=== PATIENT | male | born 1955 | race Caucasian/White ===

== ENCOUNTER 2025-02-05 14:35 | Emergency (ER) | payer MEDICARE, BC, SELFPAY ==
[2025-02-05 14:36] VITALS: BMI 25.1
[2025-02-05 14:55] VITALS: BP 116/80; PULSE 95; RESP 18; TEMP 36.6; O2SAT 99
--- NOTE | 2025-02-05 15:01 | XR_ITS ---
Examination: PA lateral chest 2 views Technique: Upright PA lateral chest 2 views Date and time: February 05, 2025 1512 hrs. Indications: Chest pain today. Findings: Normal heart size. The lungs are clear. Orthopedic screw right scapula Mild osteopenia. Impression: No active disease
--- NOTE | 2025-02-05 15:01 | EKG_ITS ---
[facility] Test Date: 2025-02-05 Pat Name: MEDINA CARBALLO Department: Room: - Gender: Male Training Representative: : 1955 Requested By: All Mcpherson Order Number: [id number] Reading MD: All Mcpherson Measurements Intervals [place] Rate: 83 P: 38 ME: 164 QRS: -12 QRSD: 88 T: 14 QT: 382 QTc: 451 Interpretive Statements SINUS RHYTHM POSSIBLE LEFT ATRIAL ENLARGEMENT [-0.1mV P-WAVE IN V1/V2] No previous ECG available for comparison /[id number]/[email or web address]/[id number].pdf
--- NOTE | 2025-02-05 15:03 | PD.EDWEAK ---
ED Weakness RME/HPI General Chief complaint: General Adult/Misc Complain Stated complaint: I THINK I HAVE HEAT STROKE Time Seen by Provider: 02/05/25 14:45 Source: patient Arrival date/time: 02/05/25 14:35 69-year-old male with no known medical history presents to the emergency room with a chief complaint of generalized weakness and fatigue x 1 day. Patient states he recently started camping in this area and states he thinks he is having a heatstroke. Mode of arrival: ambulatory Limitations: no limitations Related Data Allergies Allergy/AdvReac Type Severity Reaction Status Date / Time No Known Allergies Allergy Verified 02/05/25 14:37 ED Exam General Limitations: Present no limitations Course Orders Category Date Time Status EKG (ED ONLY) *Do not use* NOW Care 02/05/25 15:01 Active EKG (ED Only) Stat Exams 02/05/25 15:01 Ordered XR chest 2V Stat Exams 02/05/25 15:01 Ordered B-Type Natriuretic Peptide Stat Lab 02/05/25 15:01 Ordered CBC Stat Lab 02/05/25 15:01 Ordered CK [Creatine Kinase] Stat Lab 02/05/25 15:01 Ordered Comprehensive Metabolic Panel Stat Lab 02/05/25 15:01 Ordered Magnesium Stat Lab 02/05/25 15:01 Ordered Troponin I Stat Lab 02/05/25 15:01 Ordered Urinalysis, C/S if Indicated Stat Lab 02/05/25 15:01 Ordered Vital Signs Vital signs: Vital Signs Temperature 97.8 F 02/05/25 14:55 Pulse Rate 95 02/05/25 14:55 Respiratory Rate 18 02/05/25 14:55 Blood Pressure 116/80 02/05/25 14:55 Pulse Oximetry (%) 99 02/05/25 14:55 Oxygen Delivery Method Room Air 02/05/25 14:55 Discharge Plan Patient/Caregiver Discharge Instructions Print Language: Congolese
--- NOTE | 2025-02-05 15:38 | PD.EDRME ---
Rapid Medical Screening Exam [facility] Arrival date/time: 02/05/25 14:35 69-year-old male with no known medical history presents to the emergency room with a chief complaint of generalized weakness and fatigue x 1 day. Patient states he recently started camping in this area and states he thinks he is having a heatstroke. I have greeted and performed a focused initial assessment of this patient. A comprehensive ED assessment and evaluation of the patient, analysis of all test results, and completion of the medical decision making process will be conducted by additional ED providers. Chief Complaint: General Adult/Misc Complain Time Seen by Provider: 02/05/25 14:45 Vital signs: Vital Signs Temperature 97.8 F 02/05/25 14:55 Pulse Rate 95 02/05/25 14:55 Respiratory Rate 18 02/05/25 14:55 Blood Pressure 116/80 02/05/25 14:55 Pulse Oximetry (%) 99 02/05/25 14:55 Oxygen Delivery Method Room Air 02/05/25 14:55 Vital signs reviewed by provider: Yes
[2025-02-05 16:03] LABS: Basophils # (Auto) 0.1 Thou/mm3 (0.0-0.2); Basophils % (Auto) 0 % (0-2.5); Eosinophils # (Auto) 0.0 Thou/mm3 (0.0-0.5); Eosinophils % (Auto) 0 % (0-10); Hematocrit 47.0 % (41.0-53.0); Hemoglobin 16.0 g/dL (13.5-16.0); Immature Granulocytes Auto 0.07 Thou/mm3 (0.00-0.00); Lymphocytes # (Auto) 0.5 Thou/mm3 (1.0-4.8); Lymphocytes % (Auto) 3 % (10-50); Mean Corpuscular HGB Conc 34.0 g/dl (31.0-37.0); Mean Corpuscular Hemoglobin 29.7 pg (25.0-35.0); Mean Corpuscular Volume 87 fL (80-100); Monocytes # (Auto) 0.7 Thou/mm3 (0.0-0.8); Monocytes % (Auto) 4 % (0-12); Neutrophils # (Auto) 16.0 Thou/mm3 (1.8-7.7); Neutrophils % (Auto) 92 % (37-80); Nucleated Red Blood Cell # 0.00 Thou/mm3 (0.00-0.00); Nucleated Red Blood Cell % 0 /100 WBC (0); Platelet Count 325 Thou/mm3 (140-440); RDW Standard Deviation 40.6 fL (35.1-43.9); Red Blood Count 5.39 Miln/mm3 (4.50-5.90); White Blood Count 17.3 Thou/mm3 (3.8-10.6)
[2025-02-05 16:20] LABS: B-Type Natriuretic Peptide < 20 pg/mL (0-100)
[2025-02-05 16:21] LABS: Alanine Aminotransferase 15 U/L (10-49); Albumin, Serum 5.1 gm/dL (3.4-4.8); Albumin/Globulin Ratio 2.7 (1.2-2.2); Alkaline Phosphatase 61 U/L (46-116); Anion Gap 12 (7-16); Aspartate Amino Transferase 10 U/L (0-34); BUN/Creatinine Ratio 19 Ratio (12-20); Bilirubin,Total 1.1 mg/dL (0.3-1.2); Blood Urea Nitrogen 25 mg/dL (9-23); Calcium 10.3 mg/dL (8.3-10.6); Calcium (Corrected) 10.3 mg/dL (8.5-10.1); Carbon Dioxide 26.4 mMol/L (20.0-31.0); Chloride 107 mMol/L (98-107); Creatine Kinase 96 U/L (34-171); Creatinine (Component) 1.3 mg/dL (0.6-1.3); Estimated Creatinine Clearance 55.4 mL/min (>60); Globulin 1.9 gm/dL (2.3-3.5); Glucose 134 mg/dL (74-106); Magnesium 2.2 mg/dL (1.6-2.6); Osmolality,Calculated 295 (275-295); Potassium 4.7 mMol/L (3.4-5.1); Sodium 145 mMol/L (136-145); Total Protein 7.0 gm/dL (5.7-8.2); Troponin I < 0.002 ng/mL (0.0-0.045); eGFR 59 See Note
[2025-02-05 17:45] VITALS: BP 137/87; PULSE 93; RESP 20; TEMP 36.8; O2SAT 97
[2025-02-05 17:45] LABS: Collection Type, Urine Clean Catch; Squamous Epithelial Cell,Urine 0 /hpf (0-5)
[2025-02-05 17:57] LABS: Bilirubin,Urine Negative (Negative); Blood,Urine Negative (Negative); Clarity,Urine Clear (Clear/Hazy); Color,Urine Yellow (Lt Yel-Yel); Culture Indicated,Urine Not Indicated; Glucose, Urine Negative (Negative); Ketones,Urine 1+ (Negative); Leukocyte Esterase,Urine Negative (Negative); Nitrite,Urine Negative (Negative); PH,Urine 6.0 (5.0-7.0); Protein,Urine 1+ (Neg - Trace); RBC,Urine 5 /hpf (0-3); Specific Gravity,Urine 1.032 (1.001-1.035); Urobilinogen,Urine Negative mg/dL (0.0-1.0); WBC,Urine 3 /hpf (0-5)
--- NOTE | 2025-02-05 18:13 | PC.NURSE ---
PT [facility], AMBULATES W/STEADY GAIT INDEPENDENTLY. PER PT HE IS [place] ON [place], TODAY BEGAN FEELING LIGHT HEADED AND HAD SOME NAUSEA AND THOUGHT IT WAS DUE TO THE HEAT. STATES HE HAS BEEN DRINKING PLENTY OF WATER. DENIES ANY PAIN, STATES HE IS FEELING BETTER SINCE ARRIVING TO THE ED.
--- NOTE | 2025-02-05 18:26 | EDNOTE_ITS ---
<Statement entered by Renate Navas MD - 02/21/25 06:12> As co-signing physician, I was present and available for consult prn. I concur with the plan and care as documented by the midlevel provider. ED General RME/HPI General Chief complaint: General Adult/Misc Complain Stated complaint: I THINK I HAVE HEAT STROKE Time Seen by Provider: 02/05/25 14:45 Arrival date/time: 02/05/25 14:35 This is a 69-year-old male that comes in with complaints of possible heat exhaustion. [place] nearby and has felt very hot and fatigued. Patient states that he has been camping and does not feel like he has been drinking enough fluids patient denies chest pain shortness of breath. Patient just reports weakness. Patient reports diarrhea nausea but no vomiting. RME / HPI RME / HPI narrative: 02/05/25 14:35 69-year-old male with no known medical history presents to the emergency room with a chief complaint of generalized weakness and fatigue x 1 day. Patient states he recently started camping in this area and states he thinks he is having a heatstroke. I have greeted and performed a focused initial assessment of this patient. A comprehensive ED assessment and evaluation of the patient, analysis of all test results, and completion of the medical decision making process will be conducted by additional ED providers. Related Data Allergies Allergy/AdvReac Type Severity Reaction Status Date / Time No Known Allergies Allergy Verified 02/05/25 14:37 Review of Systems Review of Systems Systems Reviewed: All systems reviewed, normal except as documented Past Medical History Past Medical History Comments PMH COMMENT: Denies ED Exam Narrative Physical exam: VITAL SIGNS: Reviewed. GENERAL APPEARANCE: Alert and interactive, follows commands, no acute distress, HEAD AND FACE: Non-traumatic. ENT: PERRL, conjuctiva pink and clear, eyelid no trauma, Mucous membrane moist. NECK: Supple, nontender, no nuchal rigidity. CHEST: No tenderness, no crepitus, no paradoxical movement, no retractions. LUNGS: Clear, well ventilated, symmetric, no rales, no wheezing, no rhonchi, no stridor, good breath sounds bilaterally. HEART: Regular rate, regular rhythm, no murmur, no gallops. ABDOMEN: Soft, nondistended, no guarding, nontender NEUROLOGICAL: Gross motor function intact sensory function intact, Appropriate for age. MUSCULOSKELETAL: low back nontender, full range of motion. EXTREMITIES: No redness no swelling no skin breakdown on bilateral foot and leg. Distal neurovascular status intact bilateral foot SKIN: Color pink, dry, no rash, no lacerations, no abrasions, no contusions. Course Quality Measures none Orders Category Date Time Status Bedside COVID-19 Antigen Test NOW Care 02/05/25 19:31 Completed Bedside Influenza A&B Antigen Test NOW Care 02/05/25 19:31 Completed EKG (ED ONLY) *Do not use* NOW Care 02/05/25 15:01 Completed IV [Insert IV] STAT Care 02/05/25 18:[address] head/brain wo con Stat Exams 02/05/25 18:26 Completed EKG (ED Only) Stat Exams 02/05/25 15:01 Draft XR chest 2V Stat Exams 02/05/25 15:01 Completed B-Type Natriuretic Peptide Stat Lab 02/05/25 15:44 Completed CBC Stat Lab 02/05/25 15:44 Completed CBC Stat Lab 02/05/25 19:36 Completed CK [Creatine Kinase] Stat Lab 02/05/25 15:44 Completed Comprehensive Metabolic Panel Stat Lab 02/05/25 15:44 Completed Comprehensive Metabolic Panel Stat Lab 02/05/25 19:36 Completed Magnesium Stat Lab 02/05/25 15:44 Completed Troponin I Stat Lab 02/05/25 15:44 Completed Troponin I Stat Lab 02/05/25 19:36 Completed Urinalysis, C/S if Indicated Stat Lab 02/05/25 16:37 Completed Sodium Chloride 0.9% 1000 ml [Ns] 1,000 ml Med 02/05/25 18:26 Discontinued IV 999 mls/hr Sodium Chloride 0.9% 1000 ml [Ns] 1,000 ml Med 02/05/25 19:30 Discontinued IV 999 mls/hr Vital Signs Vital signs: Vital Signs Temperature 97.8 F 02/05/25 14:55 Pulse Rate 95 02/05/25 14:55 Respiratory Rate 18 02/05/25 14:55 Blood Pressure 116/80 02/05/25 14:55 Pulse Oximetry (%) 99 02/05/25 14:55 Oxygen Delivery Method Room Air 02/05/25 14:55 PROCEDURES: EKG Interpretation #1: Date of EK02/05/25 Time of EK:05 Rate: 83 Interpretation: Interpreted by me (Sinus rhythm possible left atrial enlargement. Patient has some Q waves in lead I aVL) EKG Impression: No ectopy, Normal QRS and Normal intervals Discharge Plan Plan Patient Disposition: HOME (Self Care) Patient condition on transfer: Stable Prescriptions/Referrals Referrals: No Primary/Family,Physician [Primary Care Provider] - In 1 week Problem List Clinical Impression: Diarrhea, Dehydration Patient/Caregiver Discharge Instructions Discharge Activity: activity as tolerated Education Materials: Dehydration Additional Instructions: Follow up with primary provider in 1-2 days. Come back to ED if symptoms change or worsen. I encourage patient to make sure he stays hydrated. Print Language: Lao Stand Alone Forms: [facility] Info., Patient Portal Info Letter PA/MILAN Supervising Physician PA/MILAN Supervising Physician: jennifer AGUILERA Narrative MDM hospital course: Pt given 2 liters iv fluids and felt better. Repeat labs also look better. Labs reviewed initial white blood cell count was 17.3 and repeat white blood cell count was 11.1. Patient's metabolic panel also looks improved BUN now 20 and creatinine 1.1. Liver function looks unremarkable patient denies abdominal pain. Patient denies nausea. UA unremarkable. Other than showing ketones. Patient ambulated in the hallway in the emergency room. Patient tolerated well. Patient feels comfortable going home at this time. I did do a repeat troponin which was also negative as well. Patient calling family member to come pick him up. ct head: Findings: No significant ventricular enlargement. Intra-axial or extra-axial hemorrhage density is not seen. No mass effect or midline shift Basal cisterns are not remarkable. Fourth ventricle is midline. Cranial vault intact. Impression: Negative for acute hemorrhage, mass effect or midline shift chest ray: Findings: Normal heart size. The lungs are clear. Orthopedic screw right scapula Mild osteopenia. Impression: No active disease Clinical Information Provided by patient Medical Records Reviewed None Meds/Rx Considered, not Ordered None Labs/Rad/Tests considered, not Ordered None Chronic Illness/Social Conditions which may negatively complicate care or outcome(s)-explain: None or not applicable Lab Interpretation Labs: interpreted by me and see narrative above Imaging Imaging interpretation: interpreted by me and see narrative above Medication Administration(s) Medication Administration History Discontinued Medications Sodium Chloride (Ns) 1,000 mls @ 999 mls/hr IV .Q1H1M ONE Stop: 02/05/25 19:26 Last Infusion: 02/05/25 20:00 Dose: Infused Documented By: Admin: 02/05/25 18:54 Dose: 999 mls/hr Documented By: SIMONE Sodium Chloride (Ns) 1,000 mls @ 999 mls/hr IV .Q1H1M ONE Stop: 02/05/25 20:30 Last Infusion: 02/05/25 20:58 Dose: Infused Documented By: Admin: 02/05/25 19:44 Dose: 999 mls/hr Documented By: DT see mar Diagnosis Differential diagnosis: dehydration, heat exhuastaion, heat stroke Dispositon Disposition: Discharge Home
--- NOTE | 2025-02-05 18:26 | XR_ITS ---
Examination: CT brain head without contrast. 2-D sagittal coronal reconstructions Date and time of exam:February 05, 2025, 1843 hrs. Indications: Onset severe dizziness today. CTDI: vol (mGy):51.0. DLP: (mGycm):1050. Technique: Multiple CT axial sections of the brain have been obtained, 5 mm slice thickness. Contrast has not been administered. 2-D sagittal, coronal reconstructions have been obtained Low dose protocols were performed. One or more of the following dose reduction techniques were used; automated exposure control, adjustment of the mA and/or KV according to patient size, use of iterative reconstruction technique. Findings: No significant ventricular enlargement. Intra-axial or extra-axial hemorrhage density is not seen. No mass effect or midline shift Basal cisterns are not remarkable. Fourth ventricle is midline. Cranial vault intact. Impression: Negative for acute hemorrhage, mass effect or midline shift Advise clinical correlation follow-up accordingly.
[2025-02-05] MEDS: SODIUM CHLORIDE 0.9% 1000 ML 1,000 ML 999 ML IV ×2 (18:54→19:44)
[2025-02-05 19:47] LABS: Basophils # (Auto) 0.0 Thou/mm3 (0.0-0.2); Basophils % (Auto) 0 % (0-2.5); Eosinophils # (Auto) 0.0 Thou/mm3 (0.0-0.5); Eosinophils % (Auto) 0 % (0-10); Hematocrit 42.5 % (41.0-53.0); Hemoglobin 14.3 g/dL (13.5-16.0); Immature Granulocytes Auto 0.04 Thou/mm3 (0.00-0.00); Lymphocytes # (Auto) 0.3 Thou/mm3 (1.0-4.8); Lymphocytes % (Auto) 3 % (10-50); Mean Corpuscular HGB Conc 33.6 g/dl (31.0-37.0); Mean Corpuscular Hemoglobin 29.4 pg (25.0-35.0); Mean Corpuscular Volume 87 fL (80-100); Monocytes # (Auto) 0.3 Thou/mm3 (0.0-0.8); Monocytes % (Auto) 3 % (0-12); Neutrophils # (Auto) 10.4 Thou/mm3 (1.8-7.7); Neutrophils % (Auto) 94 % (37-80); Nucleated Red Blood Cell # 0.00 Thou/mm3 (0.00-0.00); Nucleated Red Blood Cell % 0 /100 WBC (0); Platelet Count 272 Thou/mm3 (140-440); RDW Standard Deviation 40.8 fL (35.1-43.9); Red Blood Count 4.86 Miln/mm3 (4.50-5.90); White Blood Count 11.1 Thou/mm3 (3.8-10.6)
[2025-02-05 20:21] LABS: Alanine Aminotransferase 14 U/L (10-49); Albumin, Serum 4.4 gm/dL (3.4-4.8); Albumin/Globulin Ratio 2.3 (1.2-2.2); Alkaline Phosphatase 52 U/L (46-116); Anion Gap 10 (7-16); Aspartate Amino Transferase 12 U/L (0-34); BUN/Creatinine Ratio 18 Ratio (12-20); Bilirubin,Total 1.1 mg/dL (0.3-1.2); Blood Urea Nitrogen 20 mg/dL (9-23); Calcium 9.1 mg/dL (8.3-10.6); Calcium (Corrected) 9.1 mg/dL (8.5-10.1); Carbon Dioxide 25.4 mMol/L (20.0-31.0); Chloride 109 mMol/L (98-107); Creatinine (Component) 1.1 mg/dL (0.6-1.3); Estimated Creatinine Clearance 65.4 mL/min (>60); Globulin 1.9 gm/dL (2.3-3.5); Glucose 107 mg/dL (74-106); Osmolality,Calculated 289 (275-295); Potassium 4.3 mMol/L (3.4-5.1); Sodium 144 mMol/L (136-145); Total Protein 6.3 gm/dL (5.7-8.2); Troponin I < 0.020 ng/mL (0.0-0.045); eGFR > 60 See Note
[2025-02-05 21:10] VITALS: BP 120/79; PULSE 92; RESP 18; TEMP 36.7; O2SAT 99
== END 2025-02-05 21:25 | disposition home or self-care (01) ==
PROVIDERS: Nurse Practitioner Family; Emergency Provider Nurse Practitioner Family
DX: E86.0 Dehydration (principal); R19.7 Diarrhea, unspecified; R94.31 Abnormal electrocardiogram [ECG] [EKG]; R07.9 Chest pain, unspecified; R42 Dizziness and giddiness
CPT/HCPCS: 36415; 70450; 71046; 80053; 81001; 82550; 83735; 83880; 84484; 85025; 93005; 96360; 96361; 99284; J7030